=== PATIENT | female | born 1965 | race African-American/Black ===

== ENCOUNTER 2017-02-27 16:01 | Emergency (ER) | payer MEDICAID ==
[~2017-02-27] VITALS: Ht 160 cm; Wt 84.4 kg
[2017-02-27 16:36] VITALS: BP 126/90
[2017-02-27] MEDS ORDERED: KETOROLAC TROMETH 60MG/2ML VIAL IM ONE (17:30)
== END 2017-02-27 18:10 | disposition home or self-care (01) ==
LOC: ER 16:08
DX: S16.1XXA Strain of muscle, fascia and tendon at neck level, initial encounter (principal); V43.52XA Car driver injured in collision with other type car in traffic accident, initial encounter; Y93.89 Activity, other specified; Y99.8 Other external cause status; Y92.89 Other specified places as the place of occurrence of the external cause
CPT/HCPCS: 72040; 96372; 99284; J1885

== ENCOUNTER 2018-03-18 18:51 | Inpatient (IN) | payer MEDICAID | END 2018-03-20 18:12 | disposition home or self-care (01) | LOC: TELE-CENTR 03-19 01:25 → ER 18:51 → TELE-CENTR 03-19 02:42 | DX: R07.9 Chest pain, unspecified (principal); E66.9 Obesity, unspecified; E87.6 Hypokalemia; I10 Essential (primary) hypertension; Z68.32 Body mass index [BMI] 32.0-32.9, adult ==